=== PATIENT | female | born 1985 ===

== ENCOUNTER 2018-04-26 19:15 | Emergency (ER) | payer BC, OTHER ==
[2018-04-26 19:15] VITALS: BMI 33.3
[2018-04-26 19:39] VITALS: RESP 16
[2018-04-26 22:28] LABS: ALB/GLOB RATIO 1.1 (1.0-2.1); ALBUMIN 4.2 g/dL (3.5-5.0); ALT/SGPT 31 U/L (9-52); AST/SGOT 44 U/L (14-36); BLOOD UREA NITROGEN 14 mg/dl (7-17); CALCIUM 9.2 mg/dL (8.4-10.2); GFR NON-AFRICAN AMERICAN > 60
[2018-04-26 22:28] LABS: HEMOGLOBIN 12.1 g/dL (12.0-16.0); RBC 4.18 Mil/uL (3.80-5.20); WHITE BLOOD COUNT 10.8 K/uL (4.8-10.8)
[2018-04-26 22:29] LABS: BASO % 0.6 % (0.0-2.0); EOS % 1.2 % (0.0-4.0); LYMPH # 3.8 K/uL (1.0-4.3); LYMPH % 35.5 % (20.0-40.0); MEAN CELL VOLUME 86.9 fl (81.0-99.0); MEAN CORPUSCULAR HGB CONC 33.3 g/dL (33.0-37.0); MEAN PLATELET VOLUME 7.8 fl (7.2-11.7); MONO % 6.3 % (0.0-10.0); NEUT # 6.1 K/uL (1.8-7.0); NEUT % 56.4 % (50.0-75.0); NRBC % 0.1 % (0.0-0.0); RED CELL DISTRIBUTION WIDTH 14.3 % (11.5-14.5)
[2018-04-26 22:30] LABS: MONO # 0.7 K/uL (0.0-0.8)
[2018-04-26 22:31] LABS: BASO # 0.1 K/uL (0.0-0.2); EOS # 0.1 K/uL (0.0-0.7)
--- NOTE | 2018-04-26 23:14 | ED PDOC ---
HPI: Female Pain Chief Complaint (Nursing): Female Genitourinary Chief Complaint (Provider): abdominal pain History Per: Patient History/Exam Limitations: no limitations Onset/Duration Of Symptoms: Days (several), Worse Since (today) Current Symptoms Are (Timing): Still Present Additional Complaint(s): Anel Perdomo is a 32 year old female, with no significant past medical history, who presents to the emergency department with recent abdominal pain and continuing passage of clots with miscarriage. Patient state she began having miscarriage x2 weeks ago, she contacted [facility] [employer] who said there was nothing to do for it. Patient hasn't had an ultrasound or other further workup. She reports bleeding became worst today with mild abdominal pain prompting ED visit. Otherwise, patient has had x1 healthy normal delivery and x1 miscarriage x3 months ago. She denies any dizziness, weakness or syncope. No further medical complaints. PMD: [facility] Past Medical History Reviewed: Historical Data, Nursing Documentation, Vital Signs Vital Signs: Last Vital Signs Temp 98.8 F 04/26/18 19:36 Pulse 82 04/26/18 19:36 Resp 16 04/26/18 19:36 BP 116/76 04/26/18 19:36 Pulse Ox 98 04/26/18 19:36 - Medical History PMH: No Chronic Diseases - Surgical History Surgical History: No Surg Hx - Family History Family History: States: Unknown Family Hx - Home Medications Home Medications: Ambulatory Orders Medication Instructions Recorded Vits96/Iron Fum/Folic 1 tab PO DAILY 05/09/15 [] - Allergies Allergies/Adverse Reactions: Allergies Allergy/AdvReac Type Severity Reaction Status Date / Time NSAIDS (Non-Steroidal Allergy ANAPHYLAXIS Verified 04/26/18 19:35 Anti-Inflamma Review of Systems ROS Statement: Except As Marked, All Systems Reviewed And Found Negative Constitutional: Negative for: Weakness Gastrointestinal: Positive for: Abdominal Pain (mild) Neurological: Negative for: Dizziness, Other (syncope) Physical Exam - Reviewed Nursing Documentation Reviewed: Yes Vital Signs Reviewed: Yes - Physical Exam Appears: Positive for: No Acute Distress Head Exam: Positive for: ATRAUMATIC, NORMAL INSPECTION, NORMOCEPHALIC Skin: Positive for: Normal Color, Warm, Dry. Negative for: Rash, Cyanosis Eye Exam: Positive for: EOMI, PERRL, Other (conjunctival pallor) Neck: Positive for: Painless ROM Cardiovascular/Chest: Positive for: Regular Rate, Rhythm. Negative for: Edema, Murmur, Other (clubbing) Respiratory: Positive for: Normal Breath Sounds. Negative for: Respiratory Distress Gastrointestinal/Abdominal: Positive for: Normal Exam, Soft. Negative for: Tenderness, Guarding, Rebound Pelvic Exam: Positive for: Other (deferred) Back: Positive for: Normal Inspection. Negative for: L CVA Tenderness, R CVA Tenderness, Vertebral Tenderness Extremity: Positive for: Normal ROM (upper and lower extremities). Negative for: Deformity, Swelling Neurologic/Psych: Positive for: Alert, Oriented, Gait (steady) - Laboratory Results Result Diagrams: 04/26/18 22:28 04/26/18 22:19 - ECG O2 Sat by Pulse Oximetry: 98 (RA) Pulse Ox Interpretation: Normal Medical Decision Making Medical Decision Making: Initial Impression: Continued miscarriage for products of misconception. Tylenol for pain, labs and reevaluate patient. Initial Plan: --Type and screen --CMP --CBC w/ differential --Reevaluation 0016 Labs WNL and no sign of anemia. Pending ultrasound read to evaluate for products of missed conception. Pt comfortable and declines a need for pain med ication at this time. Pt to be signed out to Dr. Smith to follow up with sonogram results. ----- Scribe Attestation: Documented by Maximilian Owens, acting as a scribe for Hannah Galloway MD. Provider Scribe Attestation: All medical record entries made by the Scribe were at my direction and personally dictated by me. I have reviewed the chart and agree that the record accurately reflects my personal performance of the history, physical exam, medical decision making, and the department course for this patient. I have also personally directed, reviewed, and agree with the discharge instructions and disposition. Disposition - Clinical Impression Clinical Impression: Spontaneous - Disposition Disposition: Transfer of Care Disposition Time: 00:18 (Dr. Smith) Condition: STABLE Forms: [email or web address] (Khmer)
[2018-04-27 00:01] VITALS: TEMP 98.3
--- NOTE | 2018-04-27 00:36 | ED PDOC ---
- Laboratory Results Result Diagrams: 04/26/18 22:28 04/26/18 22:19 - ECG O2 Sat by Pulse Oximetry: 98 (RA) Medical Decision Making Medical Decision Makin:00 -Patient endorsed to provider by Dr. Galloway pending US results and reevaluation. Disposition - Clinical Impression Clinical Impression: Spontaneous - Disposition Condition: STABLE Forms: [employer] [place] (Lebanese)
[2018-04-27 02:09] VITALS: BP 111/69; PULSE 83; O2SAT 99
--- NOTE | 2018-04-27 09:55 | US ---
Date of service: 04/26/2018 HISTORY: ER ORDER COMPARISON: None available. TECHNIQUE: Transabdominal and transvaginal FINDINGS: UTERUS: Measures 10.3 x 4.5 x 6.1 cm. No mass. ENDOMETRIUM: Measures 27 mm in diameter. Heterogeneous. Hypervascular. Cannot rule out retained products of conception versus hypervascular thickened endometrium. There is fluid seen within the lower uterine segment endometrial cavity and within the cervix. CERVIX: Endocervical fluid. RIGHT OVARY: Measures 2.5 x 1.5 x 2.0 cm. No solid mass. Normal flow. LEFT OVARY: Measures 2.7 x 2.3 x 2.0 cm. No solid mass. Normal flow. FREE FLUID: No significant free fluid noted. OTHER FINDINGS: None. IMPRESSION: Heterogeneous thickened endometrium with hypervascularity. Cannot differentiate retained products of conception from thickened hypervascular solomon endometrium. Fluid within lower uterine segment endometrial cavity and endocervix. The preliminary findings for this examination were reported by [facility] at 12:22 a.m. on 04/27/2018. There is concurrence of this report with the preliminary findings.
== END 2018-04-27 02:20 | disposition home or self-care (01) ==
LOC: H.ER 19:15
DX: O03.9 Complete or unspecified spontaneous abortion without complication (principal)